=== PATIENT | male | born 1980 | race African-American/Black ===

== ENCOUNTER 2016-10-17 15:16 | Emergency (ER) | payer SELFPAY ==
[~2016-10-17] VITALS: Ht 162.6 cm; Wt 72.6 kg
[~2016-10-17 15:16] MED LIST: BENZ200C39 PO; PRED20TA PO; PROAIR HFA8.5 GM INH
[2016-10-17] MEDS ORDERED: LISI10TA2 PO (15:57)
--- NOTE | 2016-10-17 15:58 | PHYS DOC ---
Past Medical History Past Medical History: Hypertension, Other Additional Past Medical Histor: pinched nerve, carpal tunnel Past Surgical History: Other Additional Past Surgical Histo: L arm Alcohol Use: None Drug Use: Marijuana Adult General Chief Complaint Chief Complaint: LOWER EXT PAIN [facility] HPI Patient is a 35 year old male presents to the emergency department history of right posterior thigh pain. Patient states that it cramped up on him while he was at work yesterday. He states he has not taken anything for the pain and discomfort. He denies any recent travel. He denies any numbness or tingling down to his lower extremity. Patient also has a history of hypertension spoke pressure being 172/112 in the emergency department patient states he has not taken his medication for quite some time. He is unable to provide the name of the medication or the pharmacy in which she has had filled in the past. Shunt denies any shortness of air, chest pain or any headaches or blurred vision. Review of Systems Review of Systems Constitutional: Denies fever or chills [] Eyes: Denies change in visual acuity, redness, or eye pain [] HENT: Denies nasal congestion or sore throat [] Respiratory: Denies cough or shortness of breath [] Cardiovascular: No additional information not addressed in HPI [] GI: Denies abdominal pain, nausea, vomiting, bloody stools or diarrhea [] : Denies dysuria or hematuria [] Musculoskeletal: Denies back pain. Posterior right thigh pain Integument: Denies rash or skin lesions [] Neurologic: Denies headache, focal weakness or sensory changes [] Allergies Allergies Allergies Coded Allergies Type Severity Reaction Last Updated Verified No Known Drug Allergies 04/15/15 No Physical Exam Physical Exam Constitutional: Well developed, well nourished, no acute distress, non-toxic appearance. [] HENT: Normocephalic, atraumatic, bilateral external ears normal, oropharynx moist, no oral exudates, nose normal. [] Eyes: PERRLA, EOMI, conjunctiva normal, no discharge. [] Neck: Normal range of motion, no tenderness, supple, no stridor. [] Cardiovascular:Heart rate regular rhythm, no murmur [] Lungs & Thorax: Bilateral breath sounds clear to auscultation [] Skin: Warm, dry, no erythema, no rash. [] Back: No tenderness Extremities: Right posterior thigh tenderness, no cyanosis, no clubbing, ROM intact, no edema. No bruising, no discoloration noted tenderness noted on palpation. Peripheral pulses 2+ cap refill brisk less than 2 seconds. Patient is able to ambulate with a good steady gait. Neurologic: Alert and oriented X 3, normal motor function, normal sensory function, no focal deficits noted. [] Psychologic: Affect normal, judgement normal, mood normal. [] Current Patient Data Vital Signs Vital Signs Date Time Temp Pulse Resp B/P (MAP) Pulse Ox O2 Delivery O2 Flow Rate FiO2 10/17/16 15:37 98.1 67 16 95 Room Air 98.1 EKG EKG [] Radiology/Procedures Radiology/Procedures [] Course & Med Decision Making Course & Med Decision Making Pertinent Labs and Imaging studies reviewed. (See chart for details) Patient was recommended to use Tylenol or ibuprofen for pain and discomfort. He will be provided with lisinopril here in the emergency department as well as ibuprofen. He'll be provided with a prescription for lisinopril he'll be provided with a doctor's list in which she can follow-up with. Patient agrees with discharge instructions treatment regimens and follow-up recommendations. Also recommended patient to monitor his blood pressure. Patient was provided with signs and symptoms to return back to emergency department. [] Dragon Disclaimer Dragon Disclaimer This electronic medical record was generated, in whole or in part, using a voice recognition dictation system. Departure Departure Impression: Primary Impression: Lower extremity pain, right Additional Impression: HTN (hypertension) Disposition: 01 HOME, SELF-CARE Condition: STABLE Referrals: NO PCP (PCP) Patient Instructions: DASH Diet, Hypertension, [id number], Muscle Strain Additional Instructions: Medication as prescribed Tylenol or Ibuprofen for pain and discomfort Ice packs on 20 minutes and off 20 minutes several times a day Monitor your blood pressure daily and keep a record. You may use Eucerin cream for the dry skin to the right Achilles area Followup with a primary care provider in 5-7 days Return to emergency department as needed for signs and symptoms that become worse. Scripts Lisinopril (LISINOPRIL) 10 Mg Tablet 10 MG PO DAILY for FOR HYPERTENSION, #30 TAB 0 Refills Prov: NAIN MENDIOLA APRN 10/17/16 Problem Qualifiers NAIN MENDIOLA APRN October 17, 2016 15:58
[2016-10-17 15:59] VITALS: BP 170/112
[2016-10-17] MEDS ORDERED: IBUPROFEN 800 MG TABLET. PO ONE (16:00)
[2016-10-17] MEDS ORDERED: LISINOPRIL 10 MG TABLET PO ONE (16:00)
== END 2016-10-17 16:04 | disposition home or self-care (01) ==
LOC: ER 16:01
DX: M79.651 Pain in right thigh (principal); I10 Essential (primary) hypertension; F12.10 Cannabis abuse, uncomplicated
CPT/HCPCS: 99283

== ENCOUNTER 2016-11-10 22:24 | Emergency (ER) | payer SELFPAY ==
[~2016-11-10] VITALS: Ht 172.7 cm; Wt 72.6 kg
[~2016-11-10 22:24] MED LIST changes: +LISI10TA2 PO
--- NOTE | 2016-11-10 23:45 | PHYS DOC ---
Past Medical History Past Medical History: Hypertension, Other Additional Past Medical Histor: pinched nerve, carpal tunnel Past Surgical History: Other Additional Past Surgical Histo: L arm Alcohol Use: None Drug Use: Marijuana Adult General Chief Complaint Chief Complaint: SUBSTANCE ABUSE HPI HPI Patient is a 36 year old male who presents to the emergency department for altered mental status. Patient was brought to the emergency department by EMS. They were called to a hotel close to [place] [address] in [place], [place] after patient was found completely naked and in the lobby of the hotel. On EMS questioning, the patient stated that he thinks he may have taken too much PCP. The patient has no complaints at this time. Patient is disoriented to events earlier today. Patient is able to correctly identify the month and year and his own name. Patient does admit to use of PCP. Patient denies any other drugs. Review of Systems Review of Systems Constitutional: Denies fever or chills [] Eyes: Denies change in visual acuity, redness, or eye pain [] HENT: Denies nasal congestion or sore throat [] Respiratory: Denies cough or shortness of breath [] Cardiovascular: Denies chest pain or edema [] GI: Denies abdominal pain, nausea, vomiting, bloody stools or diarrhea [] : Denies dysuria or hematuria [] Musculoskeletal: Denies back pain or joint pain [] Integument: Denies rash or skin lesions [] Neurologic: Denies headache, focal weakness or sensory changes [] Current Medications Current Medications Current Medications Medications (Trade) Dose Ordered Sig/Nancy Start Time Stop Time Status Last Admin Dose Admin Sodium Chloride 1,000 ml @ 1,000 mls/hr Q1H 11/11/16 00:00 11/11/16 00:59 11/11/16 00:00 1,000 MLS/HR Allergies Allergies Allergies Coded Allergies Type Severity Reaction Last Updated Verified No Known Drug Allergies 04/15/15 No Physical Exam Physical Exam Constitutional: Alert, afebrile, no acute distress. [] HENT: Normocephalic, atraumatic, bilateral external ears normal, oropharynx moist, no oral exudates, nose normal. [] Eyes: PERRLA, EOMI, conjunctiva normal, no discharge. [] Neck: Normal range of motion, no tenderness, supple, no stridor. [] Cardiovascular:Heart rate regular rhythm, no murmur [] Lungs & Thorax: Bilateral breath sounds clear to auscultation [] Abdomen: Bowel sounds normal, soft, no tenderness, no masses, no pulsatile masses. [] Skin: Warm, dry, no erythema, no rash. [] Back: No tenderness, no CVA tenderness. [] Extremities: No tenderness, no cyanosis, no clubbing, ROM intact, no edema. [] Neurologic: Alert and oriented to person place and time, disoriented to events, normal motor function, normal sensory function, no focal deficits noted. [] Psychologic: Affect flat, judgement normal, mood normal. [] Current Patient Data Lab Values Laboratory Tests Test 11/10/16 23:02 11/10/16 23:08 White Blood Count 7.6 x10^3/uL (4.0-11.0) Red Blood Count 5.53 x10^6/uL (4.30-5.70) Hemoglobin 15.5 g/dL (13.0-17.5) Hematocrit 47.1 % (39.0-53.0) Mean Corpuscular Volume 85 fL (79-100) Mean Corpuscular Hemoglobin 28 pg (25-35) Mean Corpuscular Hemoglobin Concent 33 g/dL (31-37) Red Cell Distribution Width 13.9 % (11.5-14.5) Platelet Count 185 x10^3/uL (140-400) Neutrophils (%) (Auto) 63 % (31-73) Lymphocytes (%) (Auto) 29 % (24-48) Monocytes (%) (Auto) 8 % (0-9) Eosinophils (%) (Auto) 0 % (0-3) Basophils (%) (Auto) 0 % (0-3) Neutrophils # (Auto) 4.8 x10^3uL (1.8-7.7) Lymphocytes # (Auto) 2.2 x10^3/uL (1.0-4.8) Monocytes # (Auto) 0.6 x10^3/uL (0.0-1.1) Eosinophils # (Auto) 0.0 x10^3/uL (0.0-0.7) Basophils # (Auto) 0.0 x10^3/uL (0.0-0.2) Sodium Level 144 mmol/L (136-145) Potassium Level 3.7 mmol/L (3.5-5.1) Chloride Level 105 mmol/L (98-107) Carbon Dioxide Level 28 mmol/L (21-32) Anion Gap 11 (6-14) Blood Urea Nitrogen 20 mg/dL (8-26) Creatinine 1.2 mg/dL (0.7-1.3) Estimated GFR (Cockcroft-Gault) 82.4 Glucose Level 97 mg/dL (70-99) Calcium Level 9.2 mg/dL (8.5-10.1) Magnesium Level 2.0 mg/dL (1.8-2.4) Total Bilirubin 0.4 mg/dL (0.2-1.0) Direct Bilirubin 0.1 mg/dL (0.0-0.2) Aspartate Amino Transferase (AST) 29 U/L (15-37) Alanine Aminotransferase (ALT) 31 U/L (16-63) Alkaline Phosphatase 80 U/L (46-116) Total Protein 7.6 g/dL (6.4-8.2) Albumin 4.3 g/dL (3.4-5.0) Ethyl Alcohol Level < 10 mg/dL (0-10) Urine Collection Type Unknown Urine Color Yellow Urine Clarity Clear Urine pH 6.0 Urine Specific [place] >=1.030 Urine Protein Negative mg/dL (NEG-TRACE) Urine Glucose (UA) Negative mg/dL (NEG) Urine Ketones (Stick) Trace mg/dL (NEG) Urine Blood Negative (NEG) Urine Nitrite Negative (NEG) Urine Bilirubin Negative (NEG) Urine Urobilinogen Dipstick 1.0 mg/dL (0.2 mg/dL) Urine Leukocyte Esterase Negative (NEG) Urine RBC Occ /HPF (0-2) Urine WBC Occ /HPF (0-4) Urine Squamous Epithelial Cells Occ /LPF Urine Bacteria 0 /HPF (0-FEW) Urine Mucus Mod /LPF Urine Opiates Screen Neg (NEG) Urine Methadone Screen Neg (NEG) Urine Barbiturates Neg (NEG) Urine Phencyclidine Screen Pos (NEG) Urine Amphetamine/Methamphetamine Neg (NEG) Urine Benzodiazepines Screen Neg (NEG) Urine Cocaine Screen Pos (NEG) Urine Cannabinoids Screen Pos (NEG) Urine Ethyl Alcohol Neg (NEG) Laboratory Tests 11/10/16 23:02 Laboratory Tests 11/10/16 23:02 EKG EKG Interpreted by me [] Radiology/Procedures Radiology/Procedures Not performed [] Course & Med Decision Making Course & Med Decision Making Pertinent Labs and Imaging studies reviewed. (See chart for details) The patient is cooperative and oriented at this time. Patient started on IV fluids for treatment of dehydration. The patient is currently residing at the [facility] where EMS found the patient. The [facility] was contacted and stated that the patient was staying [facility] could come back as he is currently renting a room there. Spoke with the patient regarding cessation of illegal substances including PCP, marijuana, and cocaine which were found in the patient's toxicology screen. Patient voiced understanding of this conversation. The patient is cleared to be transported by cab back to the [facility]. Advised return emergency department for any worsening symptoms. Patient voiced understanding and in agreement with treatment plan. Dragon Disclaimer Dragon Disclaimer This electronic medical record was generated, in whole or in part, using a voice recognition dictation system. Departure Departure Impression: Primary Impression: Substance abuse Disposition: 01 HOME, SELF-CARE Condition: IMPROVED Referrals: NO PCP (PCP) Patient Instructions: Substance Abuse-Brief Additional Instructions: It is recommended that you stop use of PCP, cocaine, and marijuana which were found and your toxicology screen today. Return to the emergency department for any worsening symptoms. MARY FONTANEZ MD November 10, 2016 23:45
[2016-11-10 23:49] LABS: BASO % 0 % (0-3); EOS % 0 % (0-3); HEMATOCRIT 47.1 % (39.0-53.0); HEMOGLOBIN 15.5 g/dL (13.0-17.5); LYMPH # 2.2 x10^3/uL (1.0-4.8); LYMPH % 29 % (24-48); MEAN CORPUSCULAR HEMOGLOBIN 28 pg (25-35); MEAN CORPUSCULAR HGB CONC 33 g/dL (31-37); MEAN CORPUSCULAR VOLUME 85 fL (79-100); MONO % 8 % (0-9); NEUT % 63 % (31-73); PLATELET COUNT 185 x10^3/uL (140-400); RED BLOOD COUNT 5.53 x10^6/uL (4.30-5.70); RED CELL DISTRIBUTION WIDTH 13.9 % (11.5-14.5); WHITE BLOOD COUNT 7.6 x10^3/uL (4.0-11.0)
[2016-11-11] MEDS ORDERED: IV NORMAL SALINE 1000ML BAG 1,000 ML IV SCH
[2016-11-11] MEDS ORDERED: IV NORMAL SALINE 1000ML BAG 1,000 ML IV ONE
[2016-11-11 00:01] LABS: CALCIUM 9.2 mg/dL (8.5-10.1); CREATININE 1.2 mg/dL (0.7-1.3); GFR 82.4; POTASSIUM 3.7 mmol/L (3.5-5.1)
[2016-11-11 00:03] LABS: BILIRUBIN,URINE NEGATIVE (NEG); GLUCOSE,URINE NEGATIVE (NEG); NITRITE,URINE NEGATIVE (NEG); PROTEIN,URINE NEGATIVE (NEG-TRACE)
[2016-11-11 00:06] LABS: ALBUMIN 4.3 g/dL (3.4-5.0); DIRECT BILIRUBIN 0.1 mg/dL (0.0-0.2); TOTAL BILIRUBIN 0.4 mg/dL (0.2-1.0); TOTAL PROTEIN 7.6 g/dL (6.4-8.2)
[2016-11-11 00:10] LABS: BARBITURATES NEG (NEG); BENZODIAZEPINES NEG (NEG); CANNABINOIDS POS (NEG); COCAINE POS (NEG); METHADONE NEG (NEG); OPIATES NEG (NEG); PHENCYCLIDINE POS (NEG)
[2016-11-11 00:11] LABS: BACTERIA,URINE 0 /HPF (0-FEW); RBC,URINE OCC /HPF (0-2); SQUAMOUS EPITHELIAL CELL,UR OCC /LPF; WBC,URINE OCC /HPF (0-4)
[2016-11-11 00:26] VITALS: BP 176/104
--- NOTE | 2016-11-11 07:35 | EKG ---
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
== END 2016-11-11 01:00 | disposition home or self-care (01) ==
LOC: ER 23:24
DX: F19.10 Other psychoactive substance abuse, uncomplicated (principal); I10 Essential (primary) hypertension; F12.10 Cannabis abuse, uncomplicated
CPT/HCPCS: 36415; 80048; 80076; 80305; 80320; 81001; 83735; 85027; 93005; 96360; 99285; J7030; G0480; G0481

== ENCOUNTER 2016-11-26 10:37 | Emergency (ER) | payer SELFPAY ==
[~2016-11-26] VITALS: Ht 162.6 cm; Wt 72.6 kg
[~2016-11-26 10:37] MED LIST changes: -BENZ200C39 PO; +BENZ200C47 PO
[2016-11-26 10:45] VITALS: BP 152/115
[2016-11-26] MEDS ORDERED: CYCL10TA2 PO (12:05)
--- NOTE | 2016-11-26 12:05 | PHYS DOC ---
Past Medical History Past Medical History: Hypertension, Other Additional Past Medical Histor: pinched nerve, carpal tunnel Past Surgical History: Other Additional Past Surgical Histo: L arm Alcohol Use: None Drug Use: None Adult General Chief Complaint Chief Complaint: SHOULDER INJURY [facility] HPI Patient is a 36 year old male presents to the emergency department stating that he's had a 3-4 day history of left upper back pain and discomfort with left arm pain. He states that anytime he turns his head towards left against increased pain in his upper back area as well as the upper arm. He states that he woke up with this pain. Patient states he has not taken anything for the relief. He states that he has numbness in the hands. Although he does have equal strength bilaterally noted. Review of Systems Review of Systems Constitutional: Denies fever or chills [] Eyes: Denies change in visual acuity, redness, or eye pain [] HENT: Denies nasal congestion or sore throat [] Respiratory: Denies cough or shortness of breath [] Cardiovascular: No additional information not addressed in HPI [] GI: Denies abdominal pain, nausea, vomiting, bloody stools or diarrhea [] : Denies dysuria or hematuria [] Musculoskeletal: left upper back pain, left upper arm pain Integument: Denies rash or skin lesions [] Neurologic: Denies headache, focal weakness or sensory changes [] Endocrine: Denies polyuria or polydipsia [] Allergies Allergies Allergies Coded Allergies Type Severity Reaction Last Updated Verified No Known Drug Allergies 04/15/15 No Physical Exam Physical Exam Constitutional: Well developed, well nourished, no acute distress, non-toxic appearance. [] HENT: Normocephalic, atraumatic, bilateral external ears normal, oropharynx moist, no oral exudates, nose normal. [] Eyes: PERRLA, EOMI, conjunctiva normal, no discharge. [] Neck: Normal range of motion, no tenderness, supple, no stridor. [] Cardiovascular:Heart rate regular rhythm, no murmur [] Lungs & Thorax: Bilateral breath sounds clear to auscultation [] Skin: Warm, dry, no erythema, no rash. [] Back: left upper back tenderness to patient was noted to have point tenderness in the trapezoid area. Extremities: No tenderness, no cyanosis, no clubbing, ROM intact, no edema. 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 Neurologic: Alert and oriented X 3, normal motor function, normal sensory function, no focal deficits noted. [] Psychologic: Affect normal, judgement normal, mood normal. [] Current Patient Data Vital Signs Vital Signs Date Time Temp Pulse Resp B/P (MAP) Pulse Ox O2 Delivery O2 Flow Rate FiO2 11/26/16 10:45 98.1 57 18 100 Room Air 98.1 EKG EKG [] Radiology/Procedures Radiology/Procedures [] Course & Med Decision Making Course & Med Decision Making Pertinent Labs and Imaging studies reviewed. (See chart for details) Patient was recommended ice packs on 20 minutes off 20 minutes several times a day. Ibuprofen 800 mg every 8 hours with food stop taking few develop an upset stomach. Patient will be provided with Flexeril to help with pain and discomfort as well. He was instructed this medication will cause drowsiness do not take any be alert and oriented. Patient will be discharged home with recommendations to follow-up with the primary care physician in the next 7-10 days. Patient agrees with discharge instructions treatment regimens and follow- up recommendations [] Dragon Disclaimer Dragon Disclaimer This electronic medical record was generated, in whole or in part, using a voice recognition dictation system. Departure Departure Impression: Primary Impression: Upper back pain on left side Additional Impression: Left upper arm pain Disposition: 01 HOME, SELF-CARE Condition: STABLE Referrals: NO PCP (PCP) Patient Instructions: Back Pain, Adult, [id number], Muscle Strain, Easy-to- Read Additional Instructions: Activity as tolerated. Ibuprofen 800 mg every 8 hours with food stop taking few develop an upset stomach. Flexeril will cause drowsiness do not take any be alert and oriented. Ice packs on 20 minutes off 20 minutes several times a day. Follow-up to primary care physician next 7-10 days. Return back to emergency prior signs symptoms of become worse. Scripts Cyclobenzaprine Hcl (CYCLOBENZAPRINE HCL) 10 Mg Tablet 10 MG PO TID, #20 TAB Prov: NAIN MENDIOLA APRN 11/26/16 Problem Qualifiers NAIN MENDIOLA APRN Nov 26, 2016 12:05
[2016-11-26] MEDS ORDERED: IBUPROFEN 800 MG TABLET. PO ONE (12:15)
== END 2016-11-26 12:10 | disposition home or self-care (01) ==
LOC: ER 10:37
DX: M54.6 Pain in thoracic spine (principal); M79.622 Pain in left upper arm; R20.0 Anesthesia of skin; I10 Essential (primary) hypertension; Z98.890 Other specified postprocedural states
CPT/HCPCS: 99283

== ENCOUNTER 2016-12-03 15:08 | Emergency (ER) | payer SELFPAY ==
[~2016-12-03] VITALS: Ht 162.6 cm; Wt 63.5 kg
[~2016-12-03 15:08] MED LIST changes: +CYCL10TA2 PO
[2016-12-03 15:21] VITALS: BP 145/93
--- NOTE | 2016-12-03 15:44 | PHYS DOC ---
Past Medical History Past Medical History: Hypertension, Other Additional Past Medical Histor: pinched nerve, carpal tunnel Past Surgical History: Other Additional Past Surgical Histo: L arm Alcohol Use: None Drug Use: None Adult General Chief Complaint Chief Complaint: UPPER EXTREMITY PAIN HPI HPI Patient is a 36 year old male who presents with pain radiating from his left upper extremity into his left pinky finger following the ulnar surface of the forearm for the last 2 months. Patient denies any trauma. Patient is also complaining of numbness and tingling to the pinky finger and ring finger. Review of Systems Review of Systems Constitutional: Denies fever or chills [] Eyes: Denies change in visual acuity, redness, or eye pain [] Musculoskeletal: Left upper extremity pain radiating into the left fingers. Integument: Denies rash or skin lesions [] Neurologic: Denies headache, focal weakness or sensory changes [] Endocrine: Denies polyuria or polydipsia [] Allergies Allergies Allergies Coded Allergies Type Severity Reaction Last Updated Verified No Known Drug Allergies 04/15/15 No Physical Exam Physical Exam Constitutional: Well developed, well nourished, no acute distress, non-toxic appearance. [] HENT: Normocephalic, atraumatic, bilateral external ears normal, oropharynx moist, no oral exudates, nose normal. [] Eyes: PERRLA, EOMI, conjunctiva normal, no discharge. [] Skin: Warm, dry, no erythema, no rash. [] Back: No tenderness, no CVA tenderness. [] Extremities: No tenderness, no cyanosis, no clubbing, ROM intact, no edema. [] Neurologic: Alert and oriented X 3, normal motor function, normal sensory function, no focal deficits noted. [] Psychologic: Affect normal, judgement normal, mood normal. [] Current Patient Data Vital Signs Vital Signs Date Time Temp Pulse Resp B/P (MAP) Pulse Ox O2 Delivery O2 Flow Rate FiO2 12/03/16 15:21 97.6 69 18 96 Room Air 97.6 EKG EKG [] Radiology/Procedures Radiology/Procedures [] Course & Med Decision Making Course & Med Decision Making Pertinent Labs and Imaging studies reviewed. (See chart for details) Patient has pain suspicious cervical radiculopathy pain. Discharged with Medrol Dosepak naproxen and Flexeril. Provided PCP for follow-up in one week. Sheyla Disclaimer Sheyla Disclaimer This electronic medical record was generated, in whole or in part, using a voice recognition dictation system. Departure Departure Impression: Primary Impression: Cervical radiculopathy, chronic Disposition: 01 HOME, SELF-CARE Condition: STABLE Referrals: NO PCP (PCP) follow up with a doctor from the list provided in one week Patient Instructions: Cervical Radiculopathy, [id number] Additional Instructions: You were seen for cervical radiculopathy pain. Follow-up with a doctor from the provided list in 1-2 weeks. This is a chronic problem. You really need to see a primary care doctor. Scripts Naproxen (NAPROXEN) 500 Mg Tablet.dr 1 TAB PO BID, #60 TAB 1 Refill Prov: TONY STILES APRN 12/03/16 Cyclobenzaprine Hcl (CYCLOBENZAPRINE HCL) 10 Mg Tablet 1 TAB PO TID, #30 TAB Prov: TONY STILES APRN 12/03/16 Methylprednisolone (MEDROL) 4 Mg Tab.ds.pk 1 PKG PO UD, #1 PKG Prov: TONY STILES APRN 12/03/16 TONY STILES APRN Dec 03, 2016 15:44
[2016-12-03] MEDS ORDERED: NAPR500T8 PO (15:53)
[2016-12-03] MEDS ORDERED: METH4TAB2 PO (15:53)
[2016-12-03] MEDS ORDERED: CYCL10TA2 PO (15:53)
== END 2016-12-03 16:03 | disposition home or self-care (01) ==
LOC: ER 15:08
DX: M54.12 Radiculopathy, cervical region (principal); I10 Essential (primary) hypertension; G56.00 Carpal tunnel syndrome, unspecified upper limb; Z98.890 Other specified postprocedural states
CPT/HCPCS: 99283

== ENCOUNTER 2017-08-14 07:33 | Emergency (ER) | payer SELFPAY | END 2017-08-14 07:59 | disposition home or self-care (01) | LOC: ER 07:33 | DX: M79.675 Pain in left toe(s) (principal); I10 Essential (primary) hypertension | CPT/HCPCS: 99283 ==

== ENCOUNTER 2017-10-01 19:41 | Emergency (ER) | payer SELFPAY ==
[2017-10-01] MEDS: HYDROcodone/APAP 5/325MG 1 TAB TABLET PO (21:08)
[2017-10-01] MEDS: DIPHTH,PERTUSS(ACELL),TET TOX 0.5 ML DISP.SYRIN. VAX IM (21:09)
[2017-10-01] MEDS: LIDOCAINE WITH 8.4% SOD BICARB 3 ML DISP.SYRIN. INJ (21:27)
== END 2017-10-01 21:52 | disposition home or self-care (01) ==
LOC: ER 19:41
DX: S61.012A Laceration without foreign body of left thumb without damage to nail, initial encounter (principal); I10 Essential (primary) hypertension; W27.4XXA Contact with kitchen utensil, initial encounter; Y93.89 Activity, other specified; Y92.69 Other specified industrial and construction area as the place of occurrence of the external cause; Y99.8 Other external cause status
CPT/HCPCS: 12001; 73130; 90471; 90715; 99284-25

== ENCOUNTER 2017-10-09 09:14 | Emergency (ER) | payer SELFPAY | END 2017-10-09 10:01 | disposition home or self-care (01) | LOC: ER 09:14 | DX: S61.012D Laceration without foreign body of left thumb without damage to nail, subsequent encounter (principal); I10 Essential (primary) hypertension; X58.XXXD Exposure to other specified factors, subsequent encounter | CPT/HCPCS: 99281 ==

== ENCOUNTER 2017-11-24 14:04 | Emergency (ER) | payer SELFPAY ==
[2017-11-24] MEDS: LIDOCAINE WITH 8.4% SOD BICARB 3 ML DISP.SYRIN. INJ (14:30)
== END 2017-11-24 15:10 | disposition home or self-care (01) ==
LOC: ER 14:04
DX: S61.011A Laceration without foreign body of right thumb without damage to nail, initial encounter (principal); I10 Essential (primary) hypertension; W45.8XXA Other foreign body or object entering through skin, initial encounter; Y93.G3 Activity, cooking and baking; Y92.89 Other specified places as the place of occurrence of the external cause; Y99.8 Other external cause status
CPT/HCPCS: 12002; 99283

== ENCOUNTER 2018-05-08 09:54 | Emergency (ER) | payer BC ==
[~2018-05-08] VITALS: Ht 162.6 cm; Wt 75.3 kg
[~2018-05-08 09:54] MED LIST changes: +CEPH500C PO; +HYDR-3164 PO; +METH4TAB2 PO; +NAPR500T8 PO
[2018-05-08] MEDS ORDERED: IPRATRPIUM/ALBUTEROL 0.5/2.5MG 3 ML NEBU. NEB ONE (10:30)
[2018-05-08] MEDS ORDERED: IBUPROFEN 400 MG TABLET. PO ONE (10:30)
--- NOTE | 2018-05-08 10:47 | RAD ---
EXAM: Chest, 2 views. HISTORY: Chest pain. COMPARISON: None. FINDINGS: 2 views of chest are obtained. There is no infiltrate, pleural effusion or pneumothorax. The heart is normal in size. IMPRESSION: No acute pulmonary finding. Electronically signed by: Olivia Shoemaker MD (05/08/2018 10:44 AM) [facility] [place]
[2018-05-08 10:50] LABS: BASO # 0.1 x10^3/uL (0.0-0.2); BASO % 2 % (0-3); EOS # 0.2 x10^3/uL (0.0-0.7); EOS % 3 % (0-3); HEMATOCRIT 45.3 % (39.0-53.0); HEMOGLOBIN 15.2 g/dL (13.0-17.5); LYMPH # 2.1 x10^3/uL (1.0-4.8); LYMPH % 30 % (24-48); MEAN CORPUSCULAR HEMOGLOBIN 28 pg (25-35); MEAN CORPUSCULAR HGB CONC 34 g/dL (31-37); MEAN CORPUSCULAR VOLUME 85 fL (79-100); MONO # 0.7 x10^3/uL (0.0-1.1); MONO % 9 % (0-9); NEUT % 57 % (31-73); PLATELET COUNT 212 x10^3/uL (140-400); RED BLOOD COUNT 5.34 x10^6/uL (4.30-5.70); RED CELL DISTRIBUTION WIDTH 13.7 % (11.5-14.5); WHITE BLOOD COUNT 7.1 x10^3/uL (4.0-11.0)
--- NOTE | 2018-05-08 10:55 | PHYS DOC ---
Past Medical History Past Medical History: Hypertension Additional Past Medical Histor: pinched nerve, carpal tunnel Past Surgical History: Other Additional Past Surgical Histo: L arm Alcohol Use: None Drug Use: None Adult General Chief Complaint Chief Complaint: CHEST PAIN HPI HPI Patient is a 37 year old male who presents with reproducible chest pain that has been ongoing times one week. The patient states that it hurts worse with inspiration. He denies diaphoresis or radiation of the pain. He has had a mild cough but no fever. Review of Systems Review of Systems Constitutional: Denies fever or chills [] Eyes: Denies change in visual acuity, redness, or eye pain [] HENT: Denies nasal congestion or sore throat [] Respiratory: See history of present illness Cardiovascular: No additional information not addressed in HPI [] GI: Denies abdominal pain, nausea, vomiting, bloody stools or diarrhea [] : Denies dysuria or hematuria [] Musculoskeletal: Denies back pain or joint pain [] Integument: Denies rash or skin lesions [] Neurologic: Denies headache, focal weakness or sensory changes [] Endocrine: Denies polyuria or polydipsia [] All other systems were reviewed and found to be within normal limits, except as documented in this note. Current Medications Current Medications Current Medications Medications (Trade) Dose Ordered Sig/Nancy Start Time Stop Time Status Last Admin Dose Admin Albuterol/ Ipratropium (Duoneb) 3 ml 1X ONCE 05/08/18 10:30 05/08/18 10:31 DC 05/08/18 10:36 3 ML Ibuprofen (Motrin) 800 mg 1X ONCE 05/08/18 10:30 05/08/18 10:31 DC 05/08/18 10:50 800 MG Allergies Allergies Allergies Coded Allergies Type Severity Reaction Last Updated Verified No Known Drug Allergies 04/15/15 No Physical Exam Physical Exam Constitutional: Well developed, well nourished, no acute distress, non-toxic appearance. [] HENT: Normocephalic, atraumatic, bilateral external ears normal, oropharynx moist, no oral exudates, nose normal. [] Eyes: PERRLA, EOMI, conjunctiva normal, no discharge. [] Neck: Normal range of motion, no tenderness, supple, no stridor. [] Cardiovascular:Heart rate regular rhythm, no murmur [] Lungs & Thorax: Bilateral breath sounds clear to auscultation, reproducible pain on palpation or inspiration noted [] Abdomen: Bowel sounds normal, soft, no tenderness, no masses, no pulsatile masses. [] Skin: Warm, dry, no erythema, no rash. [] Neurologic: Alert and oriented X 3, normal motor function, normal sensory function, no focal deficits noted. [] Psychologic: Affect normal, judgement normal, mood normal. [] Current Patient Data Vital Signs Vital Signs Date Time Temp Pulse Resp B/P (MAP) Pulse Ox O2 Delivery O2 Flow Rate FiO2 05/08/18 10:39 99 Room Air 05/08/18 10:29 97.8 16 16 154/94 (114) 97.8 Lab Values Laboratory Tests Test 05/08/18 10:35 White Blood Count 7.1 x10^3/uL (4.0-11.0) Red Blood Count 5.34 x10^6/uL (4.30-5.70) Hemoglobin 15.2 g/dL (13.0-17.5) Hematocrit 45.3 % (39.0-53.0) Mean Corpuscular Volume 85 fL (79-100) Mean Corpuscular Hemoglobin 28 pg (25-35) Mean Corpuscular Hemoglobin Concent 34 g/dL (31-37) Red Cell Distribution Width 13.7 % (11.5-14.5) Platelet Count 212 x10^3/uL (140-400) Neutrophils (%) (Auto) 57 % (31-73) Lymphocytes (%) (Auto) 30 % (24-48) Monocytes (%) (Auto) 9 % (0-9) Eosinophils (%) (Auto) 3 % (0-3) Basophils (%) (Auto) 2 % (0-3) Neutrophils # (Auto) 4.0 x10^3uL (1.8-7.7) Lymphocytes # (Auto) 2.1 x10^3/uL (1.0-4.8) Monocytes # (Auto) 0.7 x10^3/uL (0.0-1.1) Eosinophils # (Auto) 0.2 x10^3/uL (0.0-0.7) Basophils # (Auto) 0.1 x10^3/uL (0.0-0.2) Sodium Level 142 mmol/L (136-145) Potassium Level 3.9 mmol/L (3.5-5.1) Chloride Level 105 mmol/L (98-107) Carbon Dioxide Level 27 mmol/L (21-32) Anion Gap 10 (6-14) Blood Urea Nitrogen 13 mg/dL (8-26) Creatinine 1.2 mg/dL (0.7-1.3) Estimated GFR (Cockcroft-Gault) 82.0 BUN/Creatinine Ratio 11 (6-20) Glucose Level 109 mg/dL (70-99) H Calcium Level 8.7 mg/dL (8.5-10.1) Total Bilirubin 0.4 mg/dL (0.2-1.0) Aspartate Amino Transferase (AST) 20 U/L (15-37) Alanine Aminotransferase (ALT) 37 U/L (16-63) Alkaline Phosphatase 90 U/L (46-116) Troponin I Quantitative < 0.017 ng/mL (0.000-0.055) Total Protein 6.8 g/dL (6.4-8.2) Albumin 3.9 g/dL (3.4-5.0) Albumin/Globulin Ratio 1.3 (1.0-1.7) Laboratory Tests 05/08/18 10:35 Laboratory Tests 05/08/18 10:35 EKG EKG [] Radiology/Procedures Radiology/Procedures []PATIENT: MELISSA STEEL LACCOUNT: [id number]#: [id number] : 1980 LOCATION: ER AGE: 37 SEX: M EXAM STATUS: PRE ER ORD. PHYSICIAN: ISAIAS DUARTE APRN REASON: pain with inspiration PROCEDURE: CHEST PA & LATERAL EXAM: Chest, 2 views. HISTORY: Chest pain. COMPARISON: None. FINDINGS: 2 views of chest are obtained. There is no infiltrate, pleural effusion or pneumothorax. The heart is normal in size. IMPRESSION: No acute pulmonary finding. Electronically signed by: Olivia Ma MD (05/08/2018 10:44 AM) [facility] [place] and SIGNED BY: OLIVIA MA MD DATE: 05/08/18 1043 Course & Med Decision Making Course & Med Decision Making Pertinent Labs and Imaging studies reviewed. (See chart for details) The patient was given a nebulizer treatment and ibuprofen in the emergency department. Dragon Disclaimer Dragon Disclaimer This electronic medical record was generated, in whole or in part, using a voice recognition dictation system. Departure Departure Impression: Primary Impression: Pleurisy Disposition: 01 HOME, SELF-CARE Condition: STABLE Referrals: NO PCP (PCP) Patient Instructions: Pleurisy Additional Instructions: Take ibuprofen for the inflammation. Runny humidifier at night. Increase fluids and rest. Follow-up with your primary care provider in one week if not improving or return to the emergency department if worsening. ISAIAS DUARTE CLOTHING PATTERN PREPARER May 08, 2018 10:55
[2018-05-08 11:07] LABS: CALCIUM 8.7 mg/dL (8.5-10.1); CREATININE 1.2 mg/dL (0.7-1.3); POTASSIUM 3.9 mmol/L (3.5-5.1)
[2018-05-08 11:12] LABS: ALBUMIN 3.9 g/dL (3.4-5.0); ALBUMIN/GLOBULIN RATIO 1.3 (1.0-1.7); TOTAL BILIRUBIN 0.4 mg/dL (0.2-1.0); TOTAL PROTEIN 6.8 g/dL (6.4-8.2)
[2018-05-08 11:15] VITALS: BP 132/77
--- NOTE | 2018-05-08 17:30 | EKG ---
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
== END 2018-05-08 11:37 | disposition home or self-care (01) ==
LOC: ER 09:54
DX: R09.1 Pleurisy (principal); I10 Essential (primary) hypertension
CPT/HCPCS: 36415; 71046; 80053; 84484; 85025; 93005; 94640; 99284; J7620

== ENCOUNTER 2018-12-24 20:02 | Emergency (ER) | payer SELFPAY ==
[~2018-12-24] VITALS: Ht 162.6 cm; Wt 74.8 kg
[~2018-12-24 20:02] MED LIST changes: +ALBU2.5V8 INH; -PROAIR HFA8.5 GM INH
[2018-12-24] MEDS ORDERED: IV NORMAL SALINE 1000ML BAG 1,000 ML IV SCH (20:06)
[2018-12-24] MEDS ORDERED: ONDANSETRON PF 4 MG/2 ML VIAL. IV ONE ×2 (20:15→20:45)
[2018-12-24] MEDS ORDERED: FAMOTIDINE 20 MG/2 ML VIAL IVP ONE (20:45)
[2018-12-24] MEDS ORDERED: KETOROLAC 30 MG/ML VIAL. IV ONE (20:45)
[2018-12-24] MEDS ORDERED: IV NORMAL SALINE 1000ML BAG 1,000 ML IV ONE (20:45)
[2018-12-24 20:49] LABS: BASO # 0.1 x10^3/uL (0.0-0.2); BASO % 1 % (0-3); EOS # 0.1 x10^3/uL (0.0-0.7); EOS % 1 % (0-3); HEMATOCRIT 47.2 % (39.0-53.0); HEMOGLOBIN 15.6 g/dL (13.0-17.5); LYMPH # 2.4 x10^3/uL (1.0-4.8); LYMPH % 37 % (24-48); MEAN CORPUSCULAR HEMOGLOBIN 28 pg (25-35); MEAN CORPUSCULAR HGB CONC 33 g/dL (31-37); MEAN CORPUSCULAR VOLUME 84 fL (79-100); MONO # 0.4 x10^3/uL (0.0-1.1); MONO % 7 % (0-9); NEUT # 3.5 x10^3/uL (1.8-7.7); NEUT % 54 % (31-73); PLATELET COUNT 206 x10^3/uL (140-400); RED CELL DISTRIBUTION WIDTH 13.7 % (11.5-14.5); WHITE BLOOD COUNT 6.5 x10^3/uL (4.0-11.0)
[2018-12-24] MEDS ORDERED: IOHEXOL 240 MG/ML 50ML VIAL. PO ONE (21:00)
[2018-12-24] MEDS ORDERED: IOHEXOL 300 MG/ML 100ML VIAL. IV ONE (21:00)
--- NOTE | 2018-12-24 21:05 | PHYS DOC ---
Past Medical History Past Medical History: Hypertension Additional Past Medical Histor: pinched nerve, carpal tunnel Past Surgical History: Other Additional Past Surgical Histo: L arm, dental abscess Additional Information: 2 cigarettes/day Alcohol Use: None Drug Use: None Adult General Chief Complaint Chief Complaint: ABDOMINAL PAIN HPI HPI Patient is a 38 year old male with hypertension who presents with abdominal pain, nausea, and non-bloody vomiting for 5 days. The patient denies any abdominal trauma or injury. He states he has been unable to sleep due to the pain. He describes the pain as shooting, constant, and a 10 out of 10 in severity. The pain is located in his left lower quadrant and left groin. The patient also reports that the pain is worse with breathing and coughing. He admits to increasing shortness of breath especially at night. He states the pain is nonradiating and does not involve his testicle. Patient denies any hematuria or blood in his stool. He denies noticing any bulges in his abdomen or groin. He denies any fever or chills. Review of Systems Review of Systems Constitutional: Denies fever or chills Eyes: Denies redness or eye pain HENT: Denies nasal congestion or sore throat Respiratory: Denies cough. Admits shortness of breath Cardiovascular: Denies chest pain or palpitations GI: Reports LLQ abdominal pain, nausea, and non-bloody vomiting : Denies dysuria or hematuria. Reports left groin pain. Musculoskeletal: Denies back pain or joint pain Integument: Denies rash or skin lesions Neurologic: Denies headache, focal weakness or sensory changes Complete systems were reviewed and found to be within normal limits, except as documented in this note. Current Medications Current Medications Current Medications Medications (Trade) Dose Ordered Sig/Nancy Start Time Stop Time Status Last Admin Dose Admin Famotidine (Pepcid Vial) 20 mg 1X ONCE 12/24/18 20:45 12/24/18 20:46 DC 12/24/18 20:51 20 MG Info (CONTRAST GIVEN -- Rx MONITORING) 1 each PRN DAILY PRN 12/24/18 21:15 12/24/18 23:45 DC Iohexol (Omnipaque 240 Mg/ml) 30 ml 1X ONCE 12/24/18 21:00 12/24/18 21:05 DC 12/24/18 21:29 30 ML Iohexol (Omnipaque 300 Mg/ml) 75 ml 1X ONCE 12/24/18 21:00 12/24/18 21:06 DC 12/24/18 22:05 75 ML Ketorolac Tromethamine (Toradol 30mg Vial) 15 mg 1X ONCE 12/24/18 20:45 12/24/18 20:46 DC 12/24/18 20:51 15 MG Ondansetron HCl (Zofran) 4 mg 1X ONCE 12/24/18 20:45 12/24/18 20:46 DC 12/24/18 20:51 4 MG Oxycodone/ Acetaminophen (Percocet 5/325) 1 tab 1X ONCE 12/24/18 23:15 12/24/18 23:16 DC 12/24/18 23:40 1 TAB Sodium Chloride 1,000 ml @ 1,000 mls/hr 1X ONCE 12/24/18 20:45 12/24/18 21:44 DC 12/24/18 20:52 1,000 MLS/HR Allergies Allergies Allergies Coded Allergies Type Severity Reaction Last Updated Verified No Known Drug Allergies 04/15/15 No Physical Exam Physical Exam Constitutional: Well developed, well nourished, no acute distress, non-toxic appearance HENT: Normocephalic, atraumatic, oropharynx moist Eyes: PERRL, EOMI, conjunctiva normal, no discharge Cardiovascular: Heart rate normal, regular rhythm Lungs & Thorax: Bilateral breath sounds clear to auscultation, no wheezing Abdomen: Soft, TTP in LLQ and left groin. No peritoneal signs. Skin: Warm, dry, no erythema, no rash Extremities: No tenderness, ROM intact, no edema Neurologic: Alert and oriented X 3, normal motor function, normal sensory functi on, no focal deficits noted Psychologic: Affect normal, judgement normal, mood normal Current Patient Data Vital Signs Vital Signs Date Time Temp Pulse Resp B/P (MAP) Pulse Ox O2 Delivery O2 Flow Rate FiO2 12/24/18 23:40 Room Air 12/24/18 22:30 66 18 177/117 (137) 98 12/24/18 20:06 97.9 97.9 Lab Values Laboratory Tests Test 12/24/18 20:40 12/24/18 21:30 White Blood Count 6.5 x10^3/uL (4.0-11.0) Red Blood Count 5.60 x10^6/uL (4.30-5.70) Hemoglobin 15.6 g/dL (13.0-17.5) Hematocrit 47.2 % (39.0-53.0) Mean Corpuscular Volume 84 fL (79-100) Mean Corpuscular Hemoglobin 28 pg (25-35) Mean Corpuscular Hemoglobin Concent 33 g/dL (31-37) Red Cell Distribution Width 13.7 % (11.5-14.5) Platelet Count 206 x10^3/uL (140-400) Neutrophils (%) (Auto) 54 % (31-73) Lymphocytes (%) (Auto) 37 % (24-48) Monocytes (%) (Auto) 7 % (0-9) Eosinophils (%) (Auto) 1 % (0-3) Basophils (%) (Auto) 1 % (0-3) Neutrophils # (Auto) 3.5 x10^3/uL (1.8-7.7) Lymphocytes # (Auto) 2.4 x10^3/uL (1.0-4.8) Monocytes # (Auto) 0.4 x10^3/uL (0.0-1.1) Eosinophils # (Auto) 0.1 x10^3/uL (0.0-0.7) Basophils # (Auto) 0.1 x10^3/uL (0.0-0.2) Urine Collection Type Unknown Urine Color Yellow Urine Clarity Turbid Urine pH 7.0 Urine Specific [place] >=1.030 Urine Protein Negative mg/dL (NEG-TRACE) Urine Glucose (UA) Negative mg/dL (NEG) Urine Ketones (Stick) 40 mg/dL (NEG) Urine Blood Negative (NEG) Urine Nitrite Negative (NEG) Urine Bilirubin Negative (NEG) Urine Urobilinogen Dipstick 1.0 mg/dL (0.2 mg/dL) Urine Leukocyte Esterase Negative (NEG) Urine RBC 1-2 /HPF (0-2) Urine WBC Occ /HPF (0-4) Urine Squamous Epithelial Cells Few /LPF Urine Bacteria 0 /HPF (0-FEW) Urine Mucus Mod /LPF Sodium Level 141 mmol/L (136-145) Potassium Level 3.6 mmol/L (3.5-5.1) Chloride Level 104 mmol/L (98-107) Carbon Dioxide Level 30 mmol/L (21-32) Anion Gap 7 (6-14) Blood Urea Nitrogen 18 mg/dL (8-26) Creatinine 1.2 mg/dL (0.7-1.3) Estimated GFR (Cockcroft-Gault) 81.6 BUN/Creatinine Ratio 15 (6-20) Glucose Level 90 mg/dL (70-99) Calcium Level 8.8 mg/dL (8.5-10.1) Total Bilirubin 0.5 mg/dL (0.2-1.0) Aspartate Amino Transferase (AST) 22 U/L (15-37) Alanine Aminotransferase (ALT) 29 U/L (16-63) Alkaline Phosphatase 73 U/L (46-116) Total Protein 7.0 g/dL (6.4-8.2) Albumin 3.9 g/dL (3.4-5.0) Albumin/Globulin Ratio 1.3 (1.0-1.7) Lipase 95 U/L (73-393) Laboratory Tests 12/24/18 20:40 Laboratory Tests 12/24/18 21:30 EKG EKG [] Radiology/Procedures Radiology/Procedures []PROCEDURE: CT ABD PELV W/ORAL&IV CONTRAST CT abdomen and pelvis with contrast. HISTORY: Left lower quadrant pain CT abdomen pelvis was done using 75 mL Omnipaque 300 contrast. Lung bases are clear. There is no effusion. There is a focus of decreased enhancement in the anterior liver etiology is not determined. There is not definitive enhancement to suggest a hemangioma. There is no old study for comparison. Spleen and adrenal glands are normal. Pancreas is normal. There is no renal mass or hydronephrosis. There is no ureteral calculus. Appendix is normal. Small bowel pattern is normal. There is a lobulation of fat along the anterior margin of the distal descending colon with surrounding inflammation which suggests an epiploic appendagitis. I do not see a definite diverticulum in that location. Bowel pattern is otherwise normal. IMPRESSION: 1. Epiploic appendagitis along the anterior aspect of the distal descending colon. 2. Low-density focus in the liver etiology is not definitively determined. MRI of the liver would be of benefit. PQRS Compliance Statement: One or more of the following individualized dose reduction techniques were utilized for this examination: 1. Automated exposure control 2. Adjustment of the mA and/or kV according to patient size 3. Use of iterative reconstruction technique Electronically signed by: Rnezo Winchester MD (12/24/2018 10:29 PM) [facility] Course & Med Decision Making Course & Med Decision Making Patient is a 38-year-old male who presents with 5 days of abdominal pain nausea and vomiting. The patient was non-peritoneal exam. Patient given toradol 15 mg for pain control and zofran for nausea. CT scan with contrast of the abdomen obtained which showed Epiploic Appendagitis. In addition, CT showed a liver density of unspecific origin. Patient given a copy of the CT report and counseled to seek further outpatient evaluation of the liver density. Pain controlled with additional dose of Percocet 5/325mg in the ED and given prescription for 6 tabs to take at home. Patient advised to take 1/2 a tab of Percocet PRN, and to use other half only if pain still not controlled after 1 hour. Patient also prescribed Zofran for home. Patient stable for discharge with outpatient follow-up with PCP. Discussed findings and plan with patient and family, who acknowledge understanding and agreement. Dragon Disclaimer Dragon Disclaimer This electronic medical record was generated, in whole or in part, using a voice recognition dictation system. Departure Departure Impression: Primary Impression: Epiploic appendagitis Additional Impressions: Nausea & vomiting Abnormal finding on CT scan Disposition: 01 HOME, SELF-CARE Condition: STABLE Referrals: UNKNOWN PCP NAME (PCP) Patient Instructions: Nausea and Vomiting, [id number] Additional Instructions: Take 3 tablets of Ibuprofen, 3 times a day as needed, but not at the same time as the Percocet you were prescribed. For the percocet, take 1/2 of a tablet, wait 45 minutes - one hour, and if pain is still not controlled, then take the other half. Scripts Ondansetron Hcl (ZOFRAN) 4 Mg Tablet 1 TAB PO Q8HRS PRN for NAUSEA, #20 TAB Prov: MARIA INES BIRCH DO 12/24/18 Oxycodone/Apap 5-325 (PERCOCET 5-325 MG TABLET ) 1 Each Tablet 1 TAB PO PRN Q6HRS PRN for PAIN, #6 TAB 0 Refills Prov: MARIA INES BIRCH DO 12/24/18 Problem Qualifiers Additional Impressions: Nausea & vomiting Vomiting type: unspecified Vomiting Intractability: non-intractable Qualified Codes: R11.2 - Nausea with vomiting, unspecified MARIA INES BIRCH DO Dec 24, 2018 21:05
[2018-12-24] MEDS ORDERED: CONTRAST GIVEN. MC PRN (21:15)
[2018-12-24 21:47] LABS: BILIRUBIN,URINE NEGATIVE (NEG); CLARITY,URINE TURBID; COLOR,URINE YELLOW; NITRITE,URINE NEGATIVE (NEG); PROTEIN,URINE NEGATIVE (NEG-TRACE)
[2018-12-24 21:52] LABS: CALCIUM 8.8 mg/dL (8.5-10.1); CREATININE 1.2 mg/dL (0.7-1.3); GFR 81.6; POTASSIUM 3.6 mmol/L (3.5-5.1)
[2018-12-24 21:53] LABS: BACTERIA,URINE 0 /HPF (0-FEW); SQUAMOUS EPITHELIAL CELL,UR FEW /LPF; WBC,URINE OCC /HPF (0-4)
[2018-12-24 21:59] LABS: ALBUMIN 3.9 g/dL (3.4-5.0); ALBUMIN/GLOBULIN RATIO 1.3 (1.0-1.7); TOTAL BILIRUBIN 0.5 mg/dL (0.2-1.0)
[2018-12-24 22:30] VITALS: BP 177/117
--- NOTE | 2018-12-24 22:32 | RAD ---
CT abdomen and pelvis with contrast. HISTORY: Left lower quadrant pain CT abdomen pelvis was done using 75 mL Omnipaque 300 contrast. Lung bases are clear. There is no effusion. There is a focus of decreased enhancement in the anterior liver etiology is not determined. There is not definitive enhancement to suggest a hemangioma. There is no old study for comparison. Spleen and adrenal glands are normal. Pancreas is normal. There is no renal mass or hydronephrosis. There is no ureteral calculus. Appendix is normal. Small bowel pattern is normal. There is a lobulation of fat along the anterior margin of the distal descending colon with surrounding inflammation which suggests an epiploic appendagitis. I do not see a definite diverticulum in that location. Bowel pattern is otherwise normal. IMPRESSION: 1. Epiploic appendagitis along the anterior aspect of the distal descending colon. 2. Low-density focus in the liver etiology is not definitively determined. MRI of the liver would be of benefit. PQRS Compliance Statement: One or more of the following individualized dose reduction techniques were utilized for this examination: 1. Automated exposure control 2. Adjustment of the mA and/or kV according to patient size 3. Use of iterative reconstruction technique Electronically signed by: Renzo Winchester MD (12/24/2018 10:29 PM) [facility]
[2018-12-24] MEDS ORDERED: oxyCODONE/APAP 5/325 1 TAB TABLET PO ONE (23:15)
[2018-12-24] MEDS ORDERED: OXYC1TAB15 PO (23:17)
[2018-12-24] MEDS ORDERED: ONDA4TAB7 PO (23:17)
== END 2018-12-24 23:44 | disposition home or self-care (01) ==
LOC: ER 20:02
DX: K63.89 Other specified diseases of intestine (principal); R11.2 Nausea with vomiting, unspecified; I10 Essential (primary) hypertension; F17.210 Nicotine dependence, cigarettes, uncomplicated
CPT/HCPCS: 36415; 74177; 80053; 81001; 83690; 85025; 96361; 96374; 96375; 99285; J1885; J2405; J3490; J7030; Q9966; Q9967